=== PATIENT | female | born 1935 | race Caucasian/White ===

== ENCOUNTER 2018-08-04 08:32 | Observation (INO) | payer OTHER ==
--- OUTSIDE RECORDS SUMMARY | 2018-08-04 08:34 | XMS REPORT | Clinical Summary ---
:1935 Author Organization [facility] Address [address] [place] [address] Care Team Providers Name Role Phone Tae Higgins MD Primary Care Provider Allergies Active Allergy Reactions Severity Noted Date Comments Kmhmhpp-Rrv-Lmk Reductase Inhibitors 06/02/2018 Current Medications Prescription Sig. Disp. Refills Start Date End Date Status levothyroxine (SYNTHROID, Take 75 mcg by Active LEVOXYL) 75 mcg tablet mouth every morning. propranolol (INDERAL) 40 Take 40 mg by Active MG tablet mouth 3 (three) times a day. folic acid (FOLVITE) 1 MG Take 1 mg by mouth Active tablet daily. clonIDINE (CATAPRES) 0.1 Take 0.1 mg by Active MG tablet mouth as needed for high blood pressure. TRIAMTERENE ORAL Take 37.5 mg by Active mouth as needed. 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 01/16/2018 Hospital Encounter Procedural Debby Higgins sinus Cardiology Tae Craven MD hypersensitivity 10/23/2017 Ancillary Orders Procedural Syd Lopez Carotid sinus Cardiology E., MD hypersensitivity 10/17/2017 Hospital Encounter Procedural Syd Lopez Carotid sinus Cardiology MD Trey hypersensitivity after 08/03/2017 Family History Medical History Relation Name Comments Bladder Cancer Brother Stroke Brother Stroke Father Breast cancer Mother Stroke Mother Stroke Sister Stroke Sister Stroke Sister Thyroid cancer Son Prostate cancer Son Relation Name Status Comments Brother Brother Father Mother Sister Sister Sister Alive Son Alive Son Alive Social History Tobacco Use Types Packs/Day Years Used Date Never Smoker Alcohol Use Drinks/Week oz/Week Comments Yes occasionally Sex Assigned at Date Recorded Not on file Last Filed Vital Signs Vital Sign Reading Time Taken Blood Pressure - - Pulse - - Temperature - - Respiratory Rate - - Oxygen Saturation - - Inhaled Oxygen Concentration - - Weight 81.6 kg (180 lb) 06/02/2018 9:37 AM CDT Height 160 cm (5' 3") 06/02/2018 9:37 AM CDT Body Mass Index 31.89 06/02/2018 9:37 AM CDT Plan of Treatment Health Maintenance Due Date Last Done Comments SHINGRIX VACCINE (#1) 01/17/1986 ZOSTER VACCINE 1996 PNEUMOCOCCAL POLYSACCHARIDE VACCINE AGE 65 AND OVER 01/17/2001 PNEUMOCOCCAL-13 01/17/2001 INFLUENZA VACCINE 06/18/2018 Procedures Procedure Name Priority Date/Time Associated Diagnosis Comments CORTISOL LEVEL, URINE, Routine 07/01/2018 Pituitary adenoma Results for FREE 10:44 AM CDT this procedure are in the results section. INSULIN-LIKE GROWTH Routine 06/28/2018 Pituitary adenoma Results for FACTOR I LEVEL (IGF-1) 9:42 AM CDT this procedure are in the results section. CORTISOL LEVEL, RANDOM Routine 06/28/2018 Pituitary adenoma Results for 9:42 AM CDT this procedure are in the results section. T4, FREE Routine 06/28/2018 Pituitary adenoma Results for 9:42 AM CDT this procedure are in the results section. T4 Routine 06/28/2018 Pituitary adenoma Results for 9:42 AM CDT this procedure are in the results section. HCG QUALITATIVE, SERUM Routine 06/28/2018 Pituitary adenoma Results for SCREEN 9:42 AM CDT this procedure are in the results section. T3 UPTAKE Routine 06/28/2018 Pituitary adenoma Results for 9:42 AM CDT this procedure are in the results section. T3, FREE Routine 06/28/2018 Pituitary adenoma Results for 9:42 AM CDT this procedure are in the results section. T3 Routine 06/28/2018 Pituitary adenoma Results for 9:42 AM CDT this procedure are in the results section. ADRENOCORTICOTROPIC Routine 06/28/2018 Pituitary adenoma Results for HORMONE 9:42 AM CDT this procedure are in the results section. GROWTH HORMONE Routine 06/28/2018 Pituitary adenoma Results for 9:42 AM CDT this procedure are in the results section. THYROID STIMULATING Routine 06/28/2018 Pituitary adenoma Results for HORMONE 9:42 AM CDT this procedure are in the results section. PROLACTIN LEVEL Routine 06/28/2018 Pituitary adenoma Results for 9:42 AM CDT this procedure are in the results section. FOLLICLE STIMULATING Routine 06/28/2018 Pituitary adenoma Results for HORMONE 9:42 AM CDT this procedure are in the results section. LUTEINIZING HORMONE Routine 06/28/2018 Pituitary adenoma Results for 9:42 AM CDT this procedure are in the results section. CV PACEMAKER DEFIB REMOTE Routine 04/17/2018 Carotid sinus TECH SERVICE 10:43 AM CDT hypersensitivity CV PACEMAKER DEFIB REMOTE Routine 01/17/2018 Carotid sinus TECH SERVICE 4:38 PM EDGE KITTER hypersensitivity CV PACEMAKER DEFIB REMOTE Routine 10/23/2017 Carotid sinus TECH SERVICE 11:55 AM EDGE KITTER hypersensitivity after 08/03/2017 Results Cortisol level, urine, free (07/01/2018 10:44 AM) Total volume 3,000 mL [employer] [facility] [place] [place] Cortisol, urine free 15.2 4.0 - 50.0 mcg/24 [facility] Comment: h [employer] [facility] [place] [place] Analysis performed by [employer]andem Mass Spectrometry This test was developed and its analytical performance characteristics have been determined by [facility]. It has not been cleared or approved by FDA. This assay has been validated pursuant to the CLIA regulations and is used for clinical purposes. Creatinine, urine, 1.04 0.63 - 2.50 g/24 [facility] random h [employer] Specimen Urine Narrative Performed At SPLIT 06/28/2018 FROM [id number] [facility] URINE VOLUME: 3000/24 Other Results Text Performing Organization Information: Site ID: [id number] Name: [facility] ([facility] [facility] [place] [place], Address: [address] [place] [phone] Director: Gladis Mckenna MD,PhD,ANDREEA Performing Organization Address [facility] Phone Number [facility] [employer] [place] [address] [phone] [facility] [place] [place] Insulin-like growth factor I level (IGF-1) (06/28/2018 9:42 AM) IGF-1 179 34 - 246 ng/mL [employer] Z score (female) 1.2 -2.0 - 2.0 SD [facility] Comment: [employer] [facility] [place] [place] This test was developed and its analytical performance characteristics have been determined by [facility]. It has not been cleared or approved by FDA. This assay has been validated pursuant to the CLIA regulations and is used for clinical purposes. Specimen Blood Narrative Performed At FASTING:YES [facility] COLLECTION KIT GIVEN TO PATIENT. PATIENT ADVISED TO RETURN. FASTING: YES Other Results Text Performing Organization Information: Site ID: [id number] Name: [facility], Address: [address] [place] [phone] Director: Gladis Mckenna MD,PhD,ANDREEA Performing Organization Address [facility] Phone Number [facility] [employer] [place] [address] [facility] [place] [place] Prolactin level (06/28/2018 9:42 AM) Prolactin 19.1 ng/mL [employer] [place] Comment: Reference Range Females Non-3.0-30.0 10.0-209.0 Postmenopausal2.0-20.0 Specimen Blood Narrative Performed At FASTING:YES [facility] COLLECTION KIT GIVEN TO PATIENT. PATIENT ADVISED TO RETURN. FASTING: YES Other Results Text Performing Organization Information: Site ID: [id number] Name: [facility] Address: [address] [place] [phone] Director: Roxana Brooks Performing Organization Address [facility] Phone Number [employer] [address] [address] Growth hormone (06/28/2018 9:42 AM) Growth hormone 0.4 < OR=7.1 ng/mL [employer] Comment: II Because of a pulsatile secretion pattern, random (unstimulated) growth hormone (GH) levels are frequently undetectable in normal children and adults and are not reliable for diagnosing GH deficiency. Regarding suppression tests, failure to suppress GH is diagnostic of acromegaly. Typical GH response in healthy subjects: Using the glucose tolerance (GH suppression) test, acromegaly is ruled out if the patient's GH level is <1.0 ng/mL at any point in the timed sequence. [Phi L, Tg Mijares ER, Bryan S, et al. Acromegaly: an Endocrine Society Clinical Practice Guideline. J Clin Endocrinol Metab 2014; 99: 3933- 3951]. Using GH stimulation testing, the following result at any point in the timed sequence makes GH deficiency unlikely: Adults (> or=20 years): Insulin Hypoglycemia> or=5.1 ng/mL Arginine/GHRH > or=4.1 ng/mL Glucagon> or=3.0 ng/mL Children (< 20 years): All Stimulation Tests > or=10.0 ng/mL Specimen Blood Narrative Performed At FASTING:YES [facility] COLLECTION KIT GIVEN TO PATIENT. PATIENT ADVISED TO RETURN. FASTING: YES Other Results Text Performing Organization Information: Site ID: Name: [facility] Address: [address] [place] [phone] Director: Dr. Anthony Whitfield Performing Organization Address [facility] Phone Number [employer] [place] [address] Adrenocorticotropic hormone (06/28/2018 9:42 AM) Adrenocorticotropic hormone 47 6 - 50 pg/mL [facility] Comment: [employer] [facility] [place] [place] Reference range applies only to the specimens collected between 7am-10am. Specimen Blood Narrative Performed At FASTING:YES [facility] COLLECTION KIT GIVEN TO PATIENT. PATIENT ADVISED TO RETURN. FASTING: YES Other Results Text Performing Organization Information: Site ID: [id number] Name: [facility] [facility] [place] [place], Address: [address] [place] [phone] Director: Gladis Mckenna MD,PhD,ANDREEA Performing Organization Address City/State/Zipcode Phone Number [employer] [address] [place] [address] [facility] [place] [place] hCG qualitative, serum screen (06/28/2018 9:42 AM) hCG qualitative, serum NEGATIVE See Note: [employer] [place] Comment: Reference Range: Reference Range Non-: Negative : Positive Specimen Blood Narrative Performed At FASTING:YES [facility] COLLECTION KIT GIVEN TO PATIENT. PATIENT ADVISED TO RETURN. FASTING: YES Other Results Text Performing Organization Information: Site ID: [id number] Name: [facility] Address: [address] [place] [address] Director: Roxana Brooks Performing Organization Address City/State/[place]code [place] [address] T3, free (06/28/2018 9:42 AM) T3, free 2.1 (L) 2.3 - 4.2 pg/mL [employer] [place] Specimen Blood Narrative Performed At FASTING:YES [facility] COLLECTION KIT GIVEN TO PATIENT. PATIENT ADVISED TO RETURN. FASTING: YES Other Results Text Performing Organization Information: Site ID: [facility] Name: [facility] Address: [address] [place] [phone] Director: Roxana Brooks Performing Organization Address City/[facility]/[place]code [place] [address] T3 (06/28/2018 9:42 AM) T3 77 76 - 181 ng/dL [employer] [place] Specimen Blood Narrative Performed At FASTING:YES [facility] COLLECTION KIT GIVEN TO PATIENT. PATIENT ADVISED TO RETURN. FASTING: YES Other Results Text Performing Organization Information: Site ID: [facility] Name: [facility] Address: [address] [place] [phone] Director: Roxana Brooks Performing Organization Address City/State/[place]code [place] [address] T3 uptake (06/28/2018 9:42 AM) T3 uptake 30 25 - 35 % [facility] [place] [place] Specimen Blood Narrative Performed At FASTING:YES [facility] COLLECTION KIT GIVEN TO PATIENT. PATIENT ADVISED TO RETURN. FASTING: YES Other Results Text Performing Organization Information: Site ID: [id number] Name: [facility], Address: [address] [place] [phone] Director: Gladis Mckenna MD,PhD,ANDREEA Performing Organization Address City/[facility] Phone Number [facility]ERWIN [facility]ORE/[facility] [address] [place] [address] [facility] [place] [place] Thyroid stimulating hormone (06/28/2018 9:42 AM) TSH 4.52 (H) 0.40 - 4.50 mIU/L [employer] [place] Specimen Blood Narrative Performed At FASTING:YES [facility] COLLECTION KIT GIVEN TO PATIENT. PATIENT ADVISED TO RETURN. FASTING: YES Other Results Text Performing Organization Information: Site ID: [id number] Name: [facility] Address: [address] [place] [phone] Director: Roxana Brooks Performing Organization Address [facility]/[place] [address] T4, free (06/28/2018 9:42 AM) T4, free 1.0 0.8 - 1.8 ng/dL [employer] [place] Specimen Blood Narrative Performed At FASTING:YES [facility] COLLECTION KIT GIVEN TO PATIENT. PATIENT ADVISED TO RETURN. FASTING: YES Other Results Text Performing Organization Information: Site ID: [id number] Name: [facility] Address: [address] [place] [phone] Director: Roxana Brooks Performing Organization Address [facility]/[place] [address] T4 (06/28/2018 9:42 AM) T4 7.0 5.1 - 11.9 mcg/dL [employer] [place] Specimen Blood Narrative Performed At FASTING:YES [facility] COLLECTION KIT GIVEN TO PATIENT. PATIENT ADVISED TO RETURN. FASTING: YES Other Results Text Performing Organization Information: Site ID: [id number] Name: [facility] Address: [address] [place] [phone] Director: Roxana Brooks Performing Organization Address [facility] [address] Luteinizing hormone (06/28/2018 9:42 AM) Luteinizing hormone 12.7 mIU/mL [facility] [place] Comment: Reference Range Follicular Phase1.9-12.5 Mid-Cycle Peak8.7-76.3 Luteal Phase0.5-16.9 Lglxigaxambhji73.0-54.7 Specimen Blood Narrative Performed At FASTING:YES [facility] COLLECTION KIT GIVEN TO PATIENT. PATIENT ADVISED TO RETURN. FASTING: YES Other Results Text Performing Organization Information: Site ID: [facility] Name: [facility] Address: [address] [place] [phone] Director: Roxana Brooks Performing Organization Address [facility] Phone Number [employer] [address] [address] Follicle stimulating hormone (06/28/2018 9:42 AM) Follicle stimulating 36.4 mIU/mL [employer] [place] hormone Comment: Reference Range Follicular Phase 2.5-10.2 Mid-cycle Peak 3.1-17.7 Luteal Phase 1.5- 9.1 Postmenopausal 23.0-116.3 Specimen Blood Narrative Performed At FASTING:YES [facility] COLLECTION KIT GIVEN TO PATIENT. PATIENT ADVISED TO RETURN. FASTING: YES Other Results Text Performing Organization Information: Site ID: [facility] Name: [facility] Address: [address] [place] [phone] Director: Roxana Brooks Performing Organization Address [facility] Phone Number [place] [address] Cortisol level, random (06/28/2018 9:42 AM) Cortisol, random 24.9 (H) mcg/dL [employer] [place] Comment: Reference Range: For 8 a.m.(7-9 a.m.) Specimen: 4.0-22.0 Reference Range: For 4 p.m.(3-5 p.m.) Specimen: 3.0-17.0 * Please interpret above results accordingly * Specimen Blood Narrative Performed At FASTING:YES [facility] COLLECTION KIT GIVEN TO PATIENT. PATIENT ADVISED TO RETURN. FASTING: YES Other Results Text Performing Organization Information: Site ID: [id number] Name: [facility] Address: [address] [place] [address] Director: Roxana Brooks Performing Organization Address [facility]/Zipcode Phone Number [employer] [place] [address] [place] [address] Cv pacemaker defib or ilr interrogation (04/17/2018 10:43 AM) Narrative Performed At Performing Organization Address [facility]/Zipcode Phone Number [facility] [address] [place] [address] Cv pacemaker defib or ilr interrogation (01/17/2018 4:38 PM) Narrative Performed At Performing Organization Address [facility] Phone Number [facility] [address] [place] [address] Cv pacemaker defib or ilr interrogation (10/23/2017 11:55 AM) Narrative Performed At Performing Organization Address [facility] Phone Number [facility] [address] [place] [address] after 08/03/2017 Insurance Payer Benefit Plan / Group Subscriber ID Type Phone Address AETNA MEDICARE AETNA MEDICARE HMO/PPO [facility] xxxxxxxx HMO Home: [place] [address] [phone] [address]
--- OUTSIDE RECORDS SUMMARY | 2018-08-04 08:34 | XMS REPORT | Clinical Summary ---
:1935 Author Organization [facility] Address [address] [place] [address] Phone Care Team Providers Name Role Phone Unavailable Primary Care Provider Unavailable Allergies Active Allergy Reactions Severity Noted Date Comments Vinay Inhibitors 04/09/2016 BLURRED VISION Amlodipine Besylate 04/09/2016 Nightmares Cephalosporins 04/09/2016 [place] faint Yaojcjc-Scd-Duy Reductase Inhibitors 04/09/2016 Muscle jerks Current Medications Prescription Sig. Disp. Refills Start Date End Date Status levothyroxine (SYNTHROID, Take 100 mcg by Active LEVOTHROID) 100 MCG tablet mouth Every morning on an empty stomach. venlafaxine (EFFEXOR-XR) Take 150 mg by Active 150 MG 24 hr capsule mouth daily. propranolol (INDERAL) 40 Take 40 mg by Active MG tablet mouth 2 (two) times daily. spironolactone (ALDACTONE) Take 25 mg by Active 25 MG tablet mouth daily. Active Problems Problem Noted Date Brain mass 04/10/2016 Social History Tobacco Use Types Packs/Day Years Used Date Never Assessed Sex Assigned at Date Recorded Not on file Last Filed Vital Signs Not on file Plan of Treatment Not on file Results Not on fileafter 08/03/2017
--- OUTSIDE RECORDS SUMMARY | 2018-08-04 08:35 | XMS REPORT ---
:1935 [facility] Address [address] [place] [address] Dr. Smiley [address] [place] [address] Care Team Providers Name Role Phone COLLIN ROMERO Unavailable Unavailable Problems This patient has no known problems. Allergies, Adverse Reactions, Alerts This patient has no known allergies or adverse reactions. Medications This patient has no known medications. Results Test Description Test Time Test Comments Text Results Atomic Results Result Comments POCT-CREATININE 2017-01-31 11:33:00 Test Item Value Reference Range Comments POC-CREATININE (BEAKER) (test 1.0 mg/dL 0.6-1.3 TESTED AT [facility] 67[address] [id number]) [facility] [address] POC-EGFR (BEAKER) (test [id number]) 53 mL/min/1.73M2
[2018-08-04 09:07] LABS: Absolute Lymphocytes (CBC) 1.8 K/uL (0.7-4.9); Absolute Monocytes 0.8 K/uL (0.1-1.3); Absolute Neutrophil 4.5 K/uL (1.8-8.0); Basophils % 0.6 % (0-1.3); Eosinophils % 5.1 % (0-4.4); Lymphocytes % 24.3 % (15.3-44.8); MCH 33.1 pg (27.0-35.0); MCV 95.3 fL (80-100); MPV 8.4 fL (7.6-11.3); Monocytes % 10.1 % (3.3-12.3); Protime INR 0.94
[2018-08-04] MEDS ORDERED: NA CHLORIDE 0.9% 1,000 ML ONE (09:12)
[2018-08-04] MEDS ORDERED: CLOPIDOGREL 75 MG TABLET ONE (09:12)
[2018-08-04] MEDS ORDERED: FOLIC ACID 5 MG/ML VIAL ONE (09:13)
--- NOTE | 2018-08-04 09:14 | RAD REPORT ---
EXAM DESCRIPTION: CT - Ct Stroke Brain Wo Cont - 08/04/2018 8:57 am CLINICAL HISTORY: Code stroke, left-sided paresthesia CLINICAL HISTORY: CT head October 2017 TECHNIQUE: Axial 5 millimeter thick images of the head were obtained without IV contrast. All CT scans are performed using dose optimization technique as appropriate and may include automated exposure control or mA/KV adjustment according to patient size. FINDINGS: No intracranial hemorrhage, mass, or cerebral edema. No acute cortical based infarction. N o cortical edema or sulcal effacement. Patient has mild underlying atrophy and chronic ischemic hurley e. Ventricles are in proportion to any volume loss. Arterial and physiologic calcifications are prese nt. Dey matter-white matter differentiation is preserved. No globe or orbital content abnormality. Visualized portions of the mastoid air cells, paranasal sinuses, and orbits are unremarkable. Images were only initially available in the exception folder. No report could be generated in that st atus. Images were reviewed and findings telephoned to doctor Jones 8:52 a.m.. IMPRESSION: No CT evidence of acute intracranial process. Patient has mild atrophy and chronic ischemic change.
[2018-08-04 09:34] LABS: ALT/SGPT 29 U/L (12-78); AST/SGOT 21 U/L (15-37); Albumin 3.7 g/dL (3.4-5.0); Alkaline Phosphatase 79 U/L (45-117); BUN Blood Urea Nitrogen 17 mg/dL (7-18); Bicarbonate 30 mmol/L (21-32); Bilirubin Direct < 0.1 mg/dL (0-0.2); Bilirubin Total 0.4 mg/dL (0.2-1.0); CKMB Creatine Kinase MB 1.6 ng/mL (0.3-3.6); Creatine Phosphokinase 90 U/L (26-192); Glucose Level 114 mg/dL (74-106); Magnesium 2.4 mg/dL (1.8-2.4); NT PRO-BNP 118 pg/mL (<450); Potassium 4.1 mmol/L (3.5-5.1); Protein, Total 7.5 g/dL (6.4-8.2); Sodium Level 139 mmol/L (136-145)
[2018-08-04 09:42] LABS: Troponin (Emerg Dept Use Only) < 0.02 ng/mL (0.0-0.045)
--- NOTE | 2018-08-04 09:42 | RAD REPORT ---
EXAM DESCRIPTION: RAD - Chest Single View - 08/04/2018 9:06 am CLINICAL HISTORY: Code stroke chest film COMPARISON: October 2017 TECHNIQUE: AP portable chest image was obtained 0855 hours . FINDINGS: No failure, infiltrate or mass seen. Lung parenchyma is similar to the comparison. Left-si ded pacemaker is in place. Trachea is midline. Heart and vasculature are normal. No measurable pleura l effusion and no pneumothorax. No gross bony abnormality seen. No acute aortic findings suspected. IMPRESSION: No acute cardiopulmonary process. No significant interval change.
--- NOTE | 2018-08-04 09:43 | ER ---
Nurse's Notes [facility] Name: Mariama Rodríguez Age: 83 yrs Sex: Female : 1935 Arrival Date: 08/04/2018 Time: 08:33 Bed 4 Private MD: León Paulson V Diagnosis: Transient cerebral ischemic attack, unspecified;Cystitis;Abnormal brain scan-pitutary macroadenoma Presentation: 08/04 08:35 Presenting complaint: Patient states: woke up this morning with tingling to left side iw of her body, tingling seems to be resolving and now localized to hand, pt went to bed at midnight and felt normal, pt reports hx of TIA 2-3 years ago with similar symptoms. Transition of care: patient was not received from another setting of care. No acute neurological deficit is noted. Pre-hospital glucose is not applicable to this patient. Onset of symptoms was August 04, 2018 at 00:00. Risk Assessment: Do you want to hurt yourself or someone else? Patient reports no desire to harm self or others. Initial Sepsis Screen: Does the patient meet any 2 criteria? No. Patient's initial sepsis screen is negative. Does the patient have a suspected source of infection? No. Patient's initial sepsis screen is negative. Care prior to arrival: Medication(s) given: ASA, 81 mg, x 4. 08:35 Method Of Arrival: Wheelchair iw 08:35 Acuity: CED 2 iw Stroke Activation: Symptom onset > 6 hours Physician: Stroke Attending; Name: ; Notified At: ; Arrived At: Physician: Chief Stroke Resident; Name: ; Notified At: ; Arrived At: Physician: Stroke Resident; Name: ; Notified At: ; Arrived At: Physician: ED Attending; Name: Dr. Jones; Notified At: 08:39; Arrived At: 08:39 Physician: ED Resident; Name: ; Notified At: ; Arrived At: Historical: - Allergies: 08:50 amlodipine; iw 08:50 angiotensin converting enzyme inhibitors; iw 08:50 angiotensin II inhibitors; iw 08:50 CEPHALOSPORINS; iw 08:50 Ogopuvv-Woq-Axp Reductase Inhibitors; iw - Home Meds: 09:05 levothyroxine 75 mcg tab 1 tab once daily [Active]; venlafaxine 75 mg oral tab 1 tab 2 iw times per day [Active]; propranolol 40 mg Oral tab 1 tab 2 times per day [Active]; folic acid 1 mg Oral tab 1 tab once daily [Active]; - PMHx: 08:50 chronic constipation; Hyperlipidemia; Hypertension; Hypothyroidism; TIA; iw 09:17 Pacemaker; iw - PSHx: 09:05 Cholecystectomy; Hysterectomy; iw - Immunization history:: Adult Immunizations up to date. - Social history:: Smoking status: Patient/guardian denies using tobacco. - Ebola Screening: : Patient negative for fever greater than or equal to 101.5 degrees Fahrenheit, and additional compatible Ebola Virus Disease symptoms Patient denies exposure to infectious person Patient denies travel to an Ebola-affected area in the 21 days before illness onset No symptoms or risks identified at this time. - Family history:: not pertinent. Screenin:53 Abuse screen: Denies threats or abuse. Denies injuries from another. Nutritional iw screening: No deficits noted. Tuberculosis screening: No symptoms or risk factors identified. Fall Risk IV access (20 points). 09:01 Patient reports she self administered 4-5 "baby Aspirin" this morning with ease. ss Patient was NPO on arrival to ED until now. The patient is alert, able to follow commands. The patient does not exhibit slurred or garbled speech The patient is not exhibiting difficulty speaking. The patient does not exhibit difficulty understanding words. The patient is able to swallow own secretions with no drooling or need for suction. Patient tolerated one teaspoon of water. No drooling, immediate coughing, gurgling, or clearing of the throat was noted. The patient tolerated 90mL of water. No drooling, immediate coughing, gurgling, or clearing of the throat was noted. The patient passed the bedside swallow screening. Oral medications may be given as ordered. Contact Physician for further diet orders. Assessment: 08:43 Reassessment: pt transported to CT via stretcher, with SKY Colbert. iw 08:47 Reassessment: back from CT. Patient reports that symptoms have completely subsided. ss Denies dizziness, weakness, slurred speech. General: Appears in no apparent distress. comfortable, Behavior is calm, cooperative, Denies fever, feeling ill, fatigue, chills, Patient reports that approx 45 minutes- 1 hour ago patient woke up with tingling to her L side. Upon arrival to ER, patient reports that her symptoms have mostly gone away, other than a mild tingling in her L hand. . Pain: Denies pain. Neuro: Level of Consciousness is awake, alert, obeys commands, Oriented to person, place, time, situation, Date Night Caregiver are equal bilaterally Moves all extremities. Full function Speech is normal, Facial symmetry appears normal, Pupils are PERRLA, Intact Denies weakness blurred vision dizziness, difficulty swallowing, paresthesias numbness headache photophobia. Cardiovascular: Capillary refill < 3 seconds is brisk in bilateral fingers. Respiratory: Airway is patent Trachea midline Respiratory effort is even, unlabored, Respiratory pattern is regular, symmetrical. GI: Patient currently denies abdominal pain, bloody stool, diarrhea, nausea, vomiting. : No signs and/or symptoms were reported regarding the genitourinary system. Denies burning with urination, urinary frequency. EENT: Oral mucosa is moist. Throat is clear. Derm: Skin is intact, is healthy with good turgor, Skin is dry, Skin is pink, warm \\T\\ dry. normal. Musculoskeletal: Circulation, motion, and sensation intact. Capillary refill < 3 seconds, is brisk, in bilateral fingers. Range of motion: intact in all extremities, Swelling absent. 08:53 Reassessment: CT negative, per Dr. Peres. iw 08:53 T-PA (Activase) Screening: Contraindications: Patient reports onset of signs and iw symptoms of stroke greater than 6 hours ago: Yes. 09:00 Patient self medicated with ASA prior to arrival with 4-5 "baby aspirin". Pt reports ss swallowing with ease. NPO prior on arrival to ER and prior to stroke screening. The patient is alert, and able to follow commands. The patient does not exhibit slurred or garbled speech. The patient is not exhibiting difficulty speaking. The patient does not exhibit difficulty understanding words. The patient is able to swallow own secretions with no drooling or need for suction. Patient tolerated one teaspoon of water. No drooling, immediate coughing, gurgling, or clearing of the throat was noted. The patient tolerated 90mL of water. No drooling, immediate coughing, gurgling, or clearing of the throat was noted. The patient passed the bedside swallow screening. Oral medications may be given as ordered. Contact Physician for further diet orders. Provider notified of bedside swallow screening results: Kali Jones MD. 09:13 Reassessment: Patient appears in no apparent distress at this time. Patient and/or ss family updated on plan of care and expected duration. Pain level reassessed. Patient is alert, oriented x 3, equal unlabored respirations, skin warm/dry/pink. 10:38 Reassessment: Report called to SKY Choi. ECHO is being obtained at bedside at this ss time, will wait to take patient upstairs. CAROLINE Fitzpatrick reports that she will be done with imaging in 15-20 minutes. Vital Signs: 08:41 BP 176 / 63; Pulse 75; Resp 16; Pulse Ox 98% on R/A; Weight 80.74 kg; Height 5 ft. 3 iw in. (160.02 cm); Pain 0/10; 09:19 BP 157 / 69; Pulse 63; Resp 16; Temp 98.4(O); Pulse Ox 99% on R/A; Pain 0/10; ss 09:58 BP 155 / 64; Pulse 64; Resp 19; Pulse Ox 99% ; sv 10:38 BP 162 / 73; Pulse 60; Resp 16; Pulse Ox 99% on R/A; Pain 0/10; ss 08:41 Body Mass Index 31.53 (80.74 kg, 160.02 cm) iw NIH Stroke Scale Scores: 08:47 NIHSS Score: 0 ss 08:56 NIHSS Score: 0 [facility] ED Course: 08:33 Patient arrived in ED. sb2 08:33 León Paulson MD is Private Physician. sb2 08:37 Ellen Martin, SKY is Primary Nurse. iw 08:40 Inserted saline lock: 20 gauge in right antecubital area, using aseptic technique. iw Blood collected. IV inserted by SKY Colbert. 08:45 CT completed. Patient tolerated procedure well. Patient moved to CT via stretcher. Patient moved back from CT. 08:46 Kali Jones MD is Attending Physician. pedro 08:49 Triage completed. iw 08:50 Initial lab(s) drawn, by ED staff, sent to lab. iw 08:51 Arm band placed on. iw 08:55 Sayra Cerrato, RN is Primary Nurse. ss 08:58 CT Stroke Brain w/o Contrast In Process Unspecified. EDMS 09:01 Patient has correct armband on for positive identification. Placed in gown. Bed in low ss position. Call light in reach. Side rails up X2. Adult w/ patient. night monitor on. Pulse ox on. NIBP on. Warm blanket given. 09:01 Patient maintains SpO2 saturation greater than 95% on room air. Thermoregulation: warm ss blanket given to patient. 09:06 X-ray completed. Portable x-ray completed in exam room. Patient tolerated procedure jb2 well. 09:07 XRAY Chest (1 view) In Process Unspecified. EDMS 09:20 Carotid Artery Bilateral US In Process Unspecified. EDMS 09:25 Ultrasound completed. aa4 09:42 León Paulson MD is Hospitalizing Provider. pedro 10:07 CT completed. Patient tolerated procedure well. Patient moved to CT via wheelchair. Patient moved back from CT. 10:38 No provider procedures requiring assistance completed. Patient admitted, IV remains in ss place. Administered Medications: 09:12 Drug: foLIC Acid 1 mg Route: IVPB; Site: right antecubital; 10:43 Follow up: IV Status: Completed infusion 09:13 Drug: NS 0.9% 1000 ml Route: IV; Rate: 1 bolus; Site: right antecubital; 10:43 Follow up: IV Status: Infusion continued upon admission 09:13 Drug: PlaVIX 75 mg Route: PO; 10:42 Follow up: Response: No adverse reaction 10:47 Drug: levofloxacin 500 mg Volume: 100 ml; Route: IVPB; Infused Over: 60 mins; Site: right antecubital; 10:47 Follow up: IV Status: Infusion continued upon admission Point of Care Testing: Blood Glucose: 08:41 Blood Glucose: 111 mg/dL; iw Ranges: Outcome: 09:43 Decision to Hospitalize by Provider. pedro 10:38 Condition: good 10:38 Instructed on the need for admit. 11:11 Admitted to [facility] accompanied by tech, via wheelchair, room 414, with chart, Report ss called to SKY Choi 11:12 Patient left the ED. NIH Stroke Scale - NIH Stroke Score Date: 08/04/2018 Time: 08:47 Total Score = 0 1a. Level of Consciousness (LOC) - 0(Alert) 1b. Level of Consciousness (LOC) (Year \\T\\ Age) - 0(Both) 1c. LOC Commands (Open \\T\\ Closes Eyes/Revenue Settlements Administrator) - 0(Both) 2. Best Gaze (Lateral Gaze Paresis) - 0(Normal) 3. Visual Field Loss - 0(No visual loss) 4. Facial Palsy - 0(Normal) 5a. Left Arm: Motor (10-second hold) - 0(No drift) 5b. Right Arm: Motor (10-second hold) - 0(No drift) 6a. Left Leg: Motor (5-second hold - always test supine) - 0(No drift) 6b. Right Leg: Motor (5-second hold - always test supine) - 0(No drift) 7. Limb Ataxia (finger/nose \\T\\ heel/santos - test with eyes open) - 0(Absent) 8. Sensory Loss (pinprick arms/legs/face) - 0(Normal) 9. Best Language: Aphasia (description/naming/reading) - 0(No aphasia) 10. Dysarthria (speech clarity - read or repeat words) - 0(Normal) 11. Extinction and Inattention (visual/tactile/auditory/spatial/personal) - 0(No abnormality) Initials: NIH Stroke Scale - NIH Stroke Score Date: 08/04/2018 Time: 08:56 Total Score = 0 1a. Level of Consciousness (LOC) - 0(Alert) 1b. Level of Consciousness (LOC) (Year \\T\\ Age) - 0(Both) 1c. LOC Commands (Open \\T\\ Closes Eyes/Revenue Settlements Administrator) - 0(Both) 2. Best Gaze (Lateral Gaze Paresis) - 0(Normal) 3. Visual Field Loss - 0(No visual loss) 4. Facial Palsy - 0(Normal) 5a. Left Arm: Motor (10-second hold) - 0(No drift) 5b. Right Arm: Motor (10-second hold) - 0(No drift) 6a. Left Leg: Motor (5-second hold - always test supine) - 0(No drift) 6b. Right Leg: Motor (5-second hold - always test supine) - 0(No drift) 7. Limb Ataxia (finger/nose \\T\\ heel/santos - test with eyes open) - 0(Absent) 8. Sensory Loss (pinprick arms/legs/face) - 0(Normal) 9. Best Language: Aphasia (description/naming/reading) - 0(No aphasia) 10. Dysarthria (speech clarity - read or repeat words) - 0(Normal) 11. Extinction and Inattention (visual/tactile/auditory/spatial/personal) - 0(No abnormality) Initials: pedro Signatures: Dispatcher [employer] Luna Ambrocio RN RN sv Anderson, Corey, MD MD cha Buechter, Jesse jb2 Jones, Susan sj Williams, Irene, RN RN iw Frazier, Amanda aa4 Sayra Cerrato RN RN ss Billeau, Sheri sb2
--- NOTE | 2018-08-04 09:44 | EDPHYS ---
Physician Documentation [facility] Name: Mariama Rodríguez Age: 83 yrs Sex: Female : 1935 Arrival Date: 08/04/2018 Time: 08:33 Bed 4 Private MD: León Paulson V ED Physician Kali Jones HPI: 08/04 08:56 This 83 yrs old Female presents to ER via Wheelchair with complaints of S/S epdro of Possible Stroke. 08:56 The patient's problem is reported as paresthesias, in left upper extremity, in left pedro lower extremity, in left side of face. Onset: The symptoms/episode began/occurred just prior to arrival, this morning. Duration: The episode is continuous. Context: occurred at home. The symptoms are alleviated by nothing. The symptoms are aggravated by nothing. Associated signs and symptoms: The patient has no apparent associated signs or symptoms. Severity of symptoms: At their worst the symptoms were mild in the emergency department the symptoms have resolved and did so just prior to arrival. Patient's baseline: Neuro: alert and fully oriented. The patient has not experienced similar symptoms in the past. Historical: - Allergies: 08:50 amlodipine; iw 08:50 angiotensin converting enzyme inhibitors; iw 08:50 angiotensin II inhibitors; iw 08:50 CEPHALOSPORINS; iw 08:50 Ooqkpsp-Lzw-Smf Reductase Inhibitors; iw - Home Meds: 09:05 levothyroxine 75 mcg tab 1 tab once daily [Active]; venlafaxine 75 mg oral tab 1 tab 2 iw times per day [Active]; propranolol 40 mg Oral tab 1 tab 2 times per day [Active]; folic acid 1 mg Oral tab 1 tab once daily [Active]; - PMHx: 08:50 chronic constipation; Hyperlipidemia; Hypertension; Hypothyroidism; TIA; iw 09:17 Pacemaker; iw - PSHx: 09:05 Cholecystectomy; Hysterectomy; iw - Immunization history:: Adult Immunizations up to date. - Social history:: Smoking status: Patient/guardian denies using tobacco. - Ebola Screening: : Patient negative for fever greater than or equal to 101.5 degrees Fahrenheit, and additional compatible Ebola Virus Disease symptoms Patient denies exposure to infectious person Patient denies travel to an Ebola-affected area in the 21 days before illness onset No symptoms or risks identified at this time. - Family history:: not pertinent. ROS: 08:56 Constitutional: Negative for fever, chills, and weight loss, Eyes: Negative for injury, pedro pain, redness, and discharge, ENT: Negative for injury, pain, and discharge, Neck: Negative for injury, pain, and swelling, Cardiovascular: Negative for chest pain, palpitations, and edema, Respiratory: Negative for shortness of breath, cough, wheezing, and pleuritic chest pain, Abdomen/GI: Negative for abdominal pain, nausea, vomiting, diarrhea, and constipation, Back: Negative for injury and pain, : Negative for injury, bleeding, discharge, and swelling, MS/Extremity: Negative for injury and deformity, Skin: Negative for injury, rash, and discoloration, Psych: Negative for depression, anxiety, suicide ideation, homicidal ideation, and hallucinations, Allergy/Immunology: Negative for hives, rash, and allergies, Endocrine: Negative for neck swelling, polydipsia, polyuria, polyphagia, and marked weight changes, Hematologic/Lymphatic: Negative for swollen nodes, abnormal bleeding, and unusual bruising. 08:56 Neuro: Positive for tingling, of the face, left arm and left leg. Exam: 08:56 Radiologist reports: old, nad pedro 08:56 Constitutional: This is a well developed, well nourished patient who is awake, alert, and in no acute distress. Head/Face: Normocephalic, atraumatic. Eyes: Pupils equal round and reactive to light, extra-ocular motions intact. Lids and lashes normal. Conjunctiva and sclera are non-icteric and not injected. Cornea within normal limits. Periorbital areas with no swelling, redness, or edema. ENT: Nares patent. No nasal discharge, no septal abnormalities noted. Tympanic membranes are normal and external auditory canals are clear. Oropharynx with no redness, swelling, or masses, exudates, or evidence of obstruction, uvula midline. Mucous membranes moist. Neck: Trachea midline, no thyromegaly or masses palpated, and no cervical lymphadenopathy. Supple, full range of motion without nuchal rigidity, or vertebral point tenderness. No Meningismus. Chest/axilla: Normal chest wall appearance and motion. Nontender with no deformity. No lesions are appreciated. Cardiovascular: Regular rate and rhythm with a normal S1 and S2. No gallops, murmurs, or rubs. Normal PMI, no JVD. No pulse deficits. Respiratory: Lungs have equal breath sounds bilaterally, clear to auscultation and percussion. No rales, rhonchi or wheezes noted. No increased work of breathing, no retractions or nasal flaring. Abdomen/GI: Soft, non-tender, with normal bowel sounds. No distension or tympany. No guarding or rebound. No evidence of tenderness throughout. Back: No spinal tenderness. No costovertebral tenderness. Full range of motion. Female : Normal external genitalia. Skin: Warm, dry with normal turgor. Normal color with no rashes, no lesions, and no evidence of cellulitis. MS/ Extremity: Pulses equal, no cyanosis. Neurovascular intact. Full, normal range of motion. Neuro: Awake and alert, GCS 15, oriented to person, place, time, and situation. Cranial nerves II-XII grossly intact. Motor strength 5/5 in all extremities. Sensory grossly intact. Cerebellar exam normal. Normal gait. Psych: Awake, alert, with orientation to person, place and time. Behavior, mood, and affect are within normal limits. 08:58 Neuro: Orientation: is normal, appropriate for stated age, no acute changes, Mentation: pedro is normal, appropriate for stated age, no acute changes, Memory: is normal, appropriate for stated age, no acute changes, Cranial nerves: grossly normal, is grossly normal based on the patient's age, no acute changes, Cerebellar function: is grossly normal, is grossly normal based on the patient's age, no acute changes, Motor: is normal, is grossly normal based on the patient's age, no acute changes, moves all fours, strength is 5/5 in all extremities, the no evidence of posturing, Sensation: is normal, no obvious gross deficits, appropriate no acute changes, Gait: not tested. Deep tendon reflexes are 2+ (normal) in the bilateral brachioradialis, bicep, tricep and patellar and Achilles tendons, Babinski testing is normal, seizure activity, is not displayed by the patient, not a tpa candidate, no deficits, motor or sensory. Vital Signs: 08:41 BP 176 / 63; Pulse 75; Resp 16; Pulse Ox 98% on R/A; Weight 80.74 kg; Height 5 ft. 3 iw in. (160.02 cm); Pain 0/10; 09:19 BP 157 / 69; Pulse 63; Resp 16; Temp 98.4(O); Pulse Ox 99% on R/A; Pain 0/10; ss 09:58 BP 155 / 64; Pulse 64; Resp 19; Pulse Ox 99% ; sv 10:38 BP 162 / 73; Pulse 60; Resp 16; Pulse Ox 99% on R/A; Pain 0/10; ss 08:41 Body Mass Index 31.53 (80.74 kg, 160.02 cm) iw NIH Stroke Scale Scores: 08:47 NIHSS Score: 0 ss 08:56 NIHSS Score: 0 pedro MDM: 08:46 Patient medically screened. [facility] 09:00 Data reviewed: vital signs, nurses notes, lab test result(s), EKG, radiologic studies, [facility] CT scan. 08/04 08:54 Order name: Basic Metabolic Panel; Complete Time: 09:43 [facility] 08/04 08:54 Order name: CBC with Diff; Complete Time: 09:43 [facility] 08/04 08:54 Order name: Ckmb; Complete Time: 09:43 [facility] 08/04 08:54 Order name: CPK; Complete Time: 09:43 [facility] 08/04 08:54 Order name: LFT's; Complete Time: 09:43 [facility] 08/04 08:54 Order name: Magnesium; Complete Time: 09:43 [facility] 08/04 08:54 Order name: NT PRO-BNP; Complete Time: 09:43 [facility] 08/04 08:54 Order name: PT-INR; Complete Time: 09:43 [facility] 08/04 08:54 Order name: Ptt, Activated; Complete Time: 09:43 [facility] 08/04 08:54 Order name: Troponin (emerg Dept Use Only); Complete Time: 09:43 [facility] 08/04 08:54 Order name: Urine Culture [facility] 08/04 08:55 Order name: Sed Rate; Complete Time: 09:43 [facility] 08/04 08:55 Order name: CRP; Complete Time: 09:43 [facility] 08/04 09:53 Order name: Basic Metabolic Panel [facility] 08/04 08:52 Order name: CT Stroke Brain w/o Contrast; Complete Time: 09:43 08/04 08:54 Order name: XRAY Chest (1 view); Complete Time: 09:43 [facility] 08/04 08:54 Order name: Carotid Artery Bilateral US; Complete Time: 10:38 [facility] 08/04 09:12 Order name: Echo w/ Doppler [facility] 08/04 09:53 Order name: Basic Metabolic Panel [facility] 08/04 09:53 Order name: CBC with Automated Diff [facility] 08/04 09:53 Order name: CBC with Automated Diff [facility] 08/04 09:53 Order name: Troponin I [facility] 08/04 09:53 Order name: Troponin I [facility] 08/04 09:53 Order name: Troponin I [facility] 08/04 09:54 Order name: Head angio; Complete Time: 10:40 [facility] 08/04 10:38 Order name: Urine Dipstick--Ancillary (enter results) 08/04 08:54 Order name: EKG; Complete Time: 08:55 [facility] 08/04 08:54 Order name: Cardiac monitoring; Complete Time: 09:03 [facility] 08/04 08:54 Order name: EKG - Nurse/Tech; Complete Time: 09:03 [facility] 08/04 08:54 Order name: IV Saline Lock; Complete Time: 09:03 [facility] 08/04 08:54 Order name: Labs collected and sent; Complete Time: 09:03 [facility] 08/04 08:54 Order name: O2 Per Protocol; Complete Time: 09:03 [facility] 08/04 08:54 Order name: O2 Sat Monitoring; Complete Time: 09:03 [facility] 08/04 08:54 Order name: Urine Dipstick-Ancillary (obtain specimen); Complete Time: 09:51 [facility] 08/04 09:53 Order name: CONS Physician Consult [facility] 08/04 09:53 Order name: CONS Physician Consult [facility] 08/04 09:53 Order name: Regular [facility] 08/04 09:53 Order name: EKG Electrocardiogram [facility] 08/04 09:53 Order name: EKG Electrocardiogram [facility] 08/04 09:53 Order name: EKG Electrocardiogram [facility] 08/04 09:53 Order name: EKG Electrocardiogram [facility] Administered Medications: 09:12 Drug: foLIC Acid 1 mg Route: IVPB; Site: right antecubital; ss 10:43 Follow up: IV Status: Completed infusion ss 09:13 Drug: NS 0.9% 1000 ml Route: IV; Rate: 1 bolus; Site: right antecubital; ss 10:43 Follow up: IV Status: Infusion continued upon admission ss 09:13 Drug: PlaVIX 75 mg Route: PO; ss 10:42 Follow up: Response: No adverse reaction 10:47 Drug: levofloxacin 500 mg Volume: 100 ml; Route: IVPB; Infused Over: 60 mins; Site: right antecubital; 10:47 Follow up: IV Status: Infusion continued upon admission Point of Care Testing: Blood Glucose: 08:41 Blood Glucose: 111 mg/dL; iw Ranges: Critical Glucose Levels:Adult <50 mg/dl or >400 mg/dl <40 mg/dl or >180 mg/dl Disposition: 08/04/18 09:43 Hospitalization ordered by León Paulson for Observation. Preliminary diagnosis are Transient cerebral ischemic attack, unspecified, Cystitis, Abnormal brain scan - pitutary macroadenoma. - Bed requested for Telemetry/MedSurg (observation). - Status is Observation. ss - Condition is Stable. - Problem is new. - Symptoms have improved. UTI on Admission? No NIH Stroke Scale - NIH Stroke Score Date: 08/04/2018 Time: 08:47 Total Score = 0 1a. Level of Consciousness (LOC) - 0(Alert) 1b. Level of Consciousness (LOC) (Year \T\ Age) - 0(Both) 1c. LOC Commands (Open \T\ Closes Eyes/Steep[place] Jack) - 0(Both) 2. Best Gaze (Lateral Gaze Paresis) - 0(Normal) 3. Visual Field Loss - 0(No visual loss) 4. Facial Palsy - 0(Normal) 5a. Left Arm: Motor (10-second hold) - 0(No drift) 5b. Right Arm: Motor (10-second hold) - 0(No drift) 6a. Left Leg: Motor (5-second hold - always test supine) - 0(No drift) 6b. Right Leg: Motor (5-second hold - always test supine) - 0(No drift) 7. Limb Ataxia (finger/nose \T\ heel/santos - test with eyes open) - 0(Absent) 8. Sensory Loss (pinprick arms/legs/face) - 0(Normal) 9. Best Language: Aphasia (description/naming/reading) - 0(No aphasia) 10. Dysarthria (speech clarity - read or repeat words) - 0(Normal) 11. Extinction and Inattention (visual/tactile/auditory/spatial/personal) - 0(No abnormality) Initials: NIH Stroke Scale - NIH Stroke Score Date: 08/04/2018 Time: 08:56 Total Score = 0 1a. Level of Consciousness (LOC) - 0(Alert) 1b. Level of Consciousness (LOC) (Year \T\ Age) - 0(Both) 1c. LOC Commands (Open \T\ Closes Eyes/Steeple Jack) - 0(Both) 2. Best Gaze (Lateral Gaze Paresis) - 0(Normal) 3. Visual Field Loss - 0(No visual loss) 4. Facial Palsy - 0(Normal) 5a. Left Arm: Motor (10-second hold) - 0(No drift) 5b. Right Arm: Motor (10-second hold) - 0(No drift) 6a. Left Leg: Motor (5-second hold - always test supine) - 0(No drift) 6b. Right Leg: Motor (5-second hold - always test supine) - 0(No drift) 7. Limb Ataxia (finger/nose \T\ heel/santos - test with eyes open) - 0(Absent) 8. Sensory Loss (pinprick arms/legs/face) - 0(Normal) 9. Best Language: Aphasia (description/naming/reading) - 0(No aphasia) 10. Dysarthria (speech clarity - read or repeat words) - 0(Normal) 11. Extinction and Inattention (visual/tactile/auditory/spatial/personal) - 0(No abnormality) Initials: pedro Signatures: Dispatcher [employer] Shannon Cherry RN RN dw Anderson, Corey, MD MD cha Williams, Irene, RN RN Sayra Cerrato RN RN Corrections: (The following items were deleted from the chart) 10:26 09:43 Hospitalization Ordered by León Paulson MD for Observation. Preliminary mary diagnosis is Transient cerebral ischemic attack, unspecified. Bed requested for Telemetry/MedSurg (observation). Status is Observation. Condition is Stable. Problem is new. Symptoms have improved. UTI on Admission? No. pedro 10:43 10:26 08/04/2018 09:43 Hospitalization Ordered by León Paulson MD for pedro Observation. Preliminary diagnosis is Transient cerebral ischemic attack, unspecified. Bed requested for Telemetry/MedSurg (observation). Status is Observation. Condition is Stable. Problem is new. Symptoms have improved. UTI on Admission? No. mary 11:12 10:43 08/04/2018 09:43 Hospitalization Ordered by León Paulson MD for ss Observation. Preliminary diagnosis is Transient cerebral ischemic attack, unspecified; Cystitis; Abnormal brain scan - pitutary macroadenoma. Bed requested for Telemetry/MedSurg (observation). Status is Observation. Condition is Stable. Problem is new. Symptoms have improved. UTI on Admission? No. pedro
[2018-08-04] MEDS ORDERED: ONDANSETRON 4 MG/2 ML VIAL IV PRN (09:50)
[2018-08-04] MEDS ORDERED: ACETAMINOPHEN 500 MG TAB PO PRN (09:50)
--- NOTE | 2018-08-04 10:19 | RAD REPORT ---
EXAM DESCRIPTION: US - CP - 08/04/2018 9:34 am CLINICAL HISTORY: Dizziness;Slurred speech TIA/ CVA. COMPARISON: Carotid Artery Bilateral dated 10/28/2017 TECHNIQUE: Real-time sonographic evaluation of both carotid systems was performed. Doppler interroga tion was performed with waveform tracing bilaterally. FINDINGS: Normal high resistance waveforms are noted in both external carotid arteries. The common c arotid arteries and internal carotid arteries show normal low resistance waveforms. Mild hard plaque in both proximal ICAs. Peak systolic and end diastolic velocity values and the ICA/C CA ratios are in the non-hemodynamically significant range. Antegrade flow seen in both vertebral arteries. IMPRESSION: Mild hard plaque in both proximal ICAs. No evidence of a hemodynamically significant stenosis.
--- NOTE | 2018-08-04 10:39 | RAD REPORT ---
EXAM DESCRIPTION: CT - Head angio - 08/04/2018 10:08 am CLINICAL HISTORY: Left-sided numbness, CVA, history of TIA COMPARISON: CT head same date, CT head October 2017 in March 2016 TECHNIQUE: During dynamic enhancement using nonionic IV contrast, axial 1 millimeter thick images we re obtained. Sagittal and coronal reconstruction images were generated and reviewed. Maximum intensit y projection protocol utilized. FINDINGS: Left vertebral artery is dominant. Right vertebral artery terminates at the posterior infe rior cerebellar artery. No aneurysm or vascular malformation. No vasculitis. Atherosclerotic changes are relatively mild. No major branch stenosis or occlusion identifiable. Major venous sinuses are patent. Enlarged sella turcica is present 2 cm in diameter. Soft tissue attenuation is present. 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 Findings are not substantially different from 2016. Patient's pacemaker preclud es a more sensitive MRI assessment. IMPRESSION: No aneurysm or vascular malformation. No significant degree of atherosclerotic change identifiable. No major branch stenosis or occlusion i dentifiable. 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 Finding is stable back to 2016 and possibly as far as 2011. Acute finding is not suspected. Pacemaker precludes MRI evaluation.
[2018-08-04] MEDS ORDERED: Levofloxacin500mg IV 500 MG/100 ML BAG IV ONE (10:52)
[2018-08-04 11:28] VITALS: BMI 32.3
[2018-08-04] MEDS: NA CHLORIDE 0.9% 1,000 ML IV SCH ×2 (11:44→20:15)
[2018-08-04 11:56] LABS: Urine Blood NEGATIVE (NEG); Urine Glucose NEGATIVE (NEG); Urine Protein NEGATIVE (NEG); Urine pH 6.5 (5.0-7.0)
--- NOTE | 2018-08-04 12:42 | ECHO ---
HEIGHT: 5 ft 3 in WEIGHT: 182 lb 8 oz DATE OF STUDY: 08/04/[address]: Kali Jones MD 2-DIMENSIONAL: YES M.MODE: YES DOPPLER: YES COLOR FLOW: YES TDS: NO PORTABLE: NO DEFINITY: NO BUBBLE STUDY: NO DIAGNOSIS: TIA CARDIAC HISTORY: CATHERIZATION: NO SURGERY: NO PROSTHETIC VALVE: NO PACEMAKER: YES MEASUREMENTS (cm) DIASTOLIC (NORMALS) SYSTOLIC (NORMALS) IVSd 1.0 (0.6-1.2) LA Diam 3.5 (1.9-4.0) LVEF 66% LVIDd 4.3 (3.5-5.7) LVIDs 2.7 (2.0-3.5) %FS 36% LVPWd 1.1 (0.6-1.2) Ao Diam 2.9 (2.0-3.7) 2 DIMENSIONAL ASSESSMENT: RIGHT ATRIUM: NORMAL LEFT ATRIUM: NORMAL RIGHT VENTRICLE: NORMAL LEFT VENTRICLE: NORMAL TRICUSPID VALVE: NORMAL MITRAL VALVE: NORMAL PULMONIC VALVE: NORMAL AORTIC VALVE: NORMAL PERICARDIAL EFFUSION: NONE AORTIC ROOT: NORMAL LEFT VENTRICULAR WALL MOTION: DOPPLER/COLOR FLOW: MILD TRICUSPID REGURGITATION. COMMENTS: MILD TRICUSPID REGURGITATION. PACEMAKER IN RIGHT VENTRICLE APEX. NO CLOTS OR VEGETATION. NORMAL LEFT VENTRICULAR SIZE AND FUNCTION. TECHNOLOGIST: [place] VIRAMONTES
--- NOTE | 2018-08-04 19:25 | EKG ---
Test Date: 2018-08-04 Test Time: 08:37:55 Nurse Tech: HARMEET MEASUREMENT RESULTS: Intervals: Rate: 71 DE: 164 QRSD: 76 QT: 406 QTc: 441 [place]: P: 69 DE: 164 QRS: 28 T: 46 INTERPRETIVE STATEMENTS: Normal sinus rhythm ST abnormality, possible digitalis effect Abnormal ECG Compared to ECG 10/29/2017 07:36:20 ST (T wave) deviation now present Electronically Signed On 08-04-18 19:22:54 CDT by Jorge Cobb
[2018-08-04] MEDS: PROPRANOLOL HCL 40 MG TAB PO SCH (20:08)
[2018-08-04] MEDS: VENLAFAXINE HCL XR 75 MG CAP PO SCH (20:09)
[2018-08-04] MEDS ORDERED: VENLAFAXINE HCL 75 MG PO SCH (21:00)
--- NOTE | 2018-08-05 01:13 | CON ---
Reason For Consultation: Consultation called by Dr. Jones in the emergency room because of possib le transient ischemic attack. History Of Present Illness: Ms. Rodríguez is an 83-year-old patient with hypertension, dyslipidemia, and reported TIAs in the past, had an event this morning which she felt the TIA. She woke up, tried to get out of bed, and then felt "unusual and funny." She did not have face, arm, or leg focal weakness or numbness, but she just felt general not herself. She woke her son and asked him to bring her to the hospital. The episode lasted somewhere between 6 and 9 minutes and then she returned back to her self. At [facility], her head CT scan was unremarkable for any acute ischemic hemorrhagic c hange. She did have a finding of a chronic and enlarged sella turcica with 2 cm in diameter. This w as compared back to scan from 2016 and 2011 and appears to be unchanged. She does have a pacemaker a nd is unable to get the brain MRI. In the emergency room, her NIH stroke scale was 0. She was admitted for a stroke workup. Past Medical History: Hypertension, dyslipidemia, use of statins, hypothyroidism, transient ischemic attack, arrhythmia and now on cardiac pacemaker. Past Surgical History: Cholecystectomy and hysterectomy. Home Medications: Levothyroxine 25 mg daily, venlafaxine 75 mg twice daily, propranolol 40 mg daily, folic acid 1 mg daily, aspirin 81 mg daily. Allergies: AMLODIPINE, ANGIOTENSIN CONVERTING ENZYME INHIBITORS, AND CEPHALOSPORINS, ALONG WITH STAT INS, HMG-COA REDUCTASE. Family History: Not contributory. Social History: No alcohol, tobacco, or IV drug use. Review of Systems: Aside from mentioned above, she denies any recent fevers, chills, nausea, vomiting, arthritis, myalgi as, headaches, weight change, or rash. No psychiatric complaints. No gastrointestinal or genitourin bing issues. Physical Examination: Vital Signs: Blood pressure 152/69, pulse 72, respiratory rate 18, temperature 97.4, oxygen saturati on 98% on room air, weight 182 pounds, height 5 feet 3 inches, BMI 32.3. General: Ms. Rodríguez is resting in bed. She is in no acute distress. HEENT: She is normocephalic and atraumatic. Sclerae are anicteric. Oropharynx is pink and moist. Neck: Supple. Chest: Clear. Heart: Regular. Extremities: Show no clubbing, cyanosis, or edema. Neurologic: She is alert and oriented to person, place, and situation. She has no expressive or rec eptive aphasias. Cranial nerves 2 through 12 are intact by examination. Motor examination 5/5 proxi gricel and distally in upper and lower extremities. Sensory exam intact except for mild stocking-glov e loss to light touch temperature in the arms and legs. Reflexes depressed but symmetric in the uppe r and lower extremities. Coordination intact in the upper and lower extremities. Gait; good stance, stride, and a stroke scale of 0. Laboratory Studies: Complete blood count with differential is normal. Coagulation panel is normal. Chemistries are unremarkable except glucose slightly elevated at 114. Liver function studies are no rmal. C-reactive protein elevated at 11. Urinalysis shows a trace of esterase and is otherwise unre markable. Carotid artery ultrasound showed no evidence of hemodynamically significant stenosis and e chocardiogram showed ejection fraction 66% with no vegetation or clots in the right ventricle. Assessment: Ms. Rodríguez is an 83-year-old patient with a possible transient ischemic attack, although it is not quite clear if that is the case or there is a cardiovascular issue while she had her event. She has had a 2 cm sella turcica mass, stable for the last 6 years. That is unlikely to be a contr ibuting factor to the patient's symptoms. She was put on Plavix along with aspirin and folic acid. Plan: 1.Continue that regimen; aspirin, Plavix, and folic acid. 2.Continue with hypertensive management as indicated. 3.Continue with beta-mauri for heart rate control. 4.May try nonprescription fish oil to 4 g daily for cholesterol modification. It should be noted th at the patient is allergic to statins that is why she is not on statin at this point. 5.We will make sure that the blood work does include a lipid panel. CYDNEY/ELICEO Voice ID: [id number] Report ID: [id number]
[2018-08-05] MEDS: NA CHLORIDE 0.9% 1,000 ML IV SCH ×2 (02:00→05:48)
[2018-08-05 04:24] LABS: Absolute Lymphocytes (CBC) 1.6 K/uL (0.7-4.9); Absolute Monocytes 0.7 K/uL (0.1-1.3); Absolute Neutrophil 3.9 K/uL (1.8-8.0); Basophils % 0.7 % (0-1.3); Eosinophils % 5.4 % (0-4.4); Hematocrit 37.4 % (36.0-45.0); Lymphocytes % 23.9 % (15.3-44.8); MCH 32.3 pg (27.0-35.0); MCV 95.3 fL (80-100); MPV 8.6 fL (7.6-11.3); Monocytes % 10.8 % (3.3-12.3); RBC Red Blood Cell Count 3.92 M/uL (3.86-4.86)
[2018-08-05 04:46] LABS: Potassium 4.3 mmol/L (3.5-5.1)
--- NOTE | 2018-08-05 04:53 | HP ---
Date of Admission: 08/04/2018 History Of Present Illness: Ms. Rodríguez has had a TIA before, comes in with left-sided facial numbness , left arm and left leg tingling lasting for a few minutes. Reports to emergency room. She denies a ny complaints at this point. There is no chest pain, nausea, vomiting, diarrhea, coughing, sputum, h emoptysis, hematemesis, or melena. Past Medical History: She has had history of high blood pressure, hypothyroidism, depression, has a pituitary mass which was followed by a doctor in [place], dyslipidemia, TIA in the past. Surgical History: Pacemaker placement, hysterectomy, and rectocele. Social History: Nonsmoker. Medications: There are some medications she is on; Abilify 5 mg once a day, cabergoline 0.5 mg p.o. daily, Plavix 75 mg once a day, but she quit taking it as she did not realize she has to continue. W e had given a Plavix last visit in the hospital for TIA, folic acid 1 mg once a day, thyroid 88 mcg o nce a day, venlafaxine 150 mg p.o. twice a day, and Inderal 40 mg p.o. b.i.d. Physical Examination: Vital Signs: Ms. Mariama Mares blood pressure is 164/73, pulse is 60, respirations 16, temperature 98.4, O2 saturation 92% on room air. HEENT: No JVD, no carotid bruit. Chest: Clear. Heart: Regular. Abdomen: No guarding, no rebound, no rigidity, or no tenderness. Neurological: There are no focal deficits. Power 5/5 bilaterally. Sensation is normal. Reflexes a re normal. Lab Data: On admission, a cardiac enzymes x2 are negative. Her CBC; hemoglobin 13, hematocrit 40, w cheryl count 7.5, and platelets of 258,000. PT, INR, and PTT are normal. BUN 17, creatinine 1.20, sod ium 139, and glucose 114. C-reactive protein is 11. UA is negative. CT scan of brain is negative e xcept for the 2-cm mass. 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 H er chest x-ray is negative. Carotid ultrasound, mild plaquing, no significant disease. Echocardiogr am, negative. Assessment And Plan: 1.TIA, resume Plavix 75 mg once a day. The patient's family is aware, I have told the son to watch her medications from now onwards. She with her aging process and maybe some early memory loss forgot that she is supposed to take Plavix every day. I do not see any other changes in her medications at this point. She will be seeing Dr. Crowder, but she also sees a neurologist in [place] for followu p pituitary adenoma, which is about the same size as before. 2.Anxiety and depression, unchanged from before. 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 The patient is clinically stable, otherwise, most likel y will be able to go home tomorrow. GINA/ELICEO Voice ID: [id number]
[2018-08-05] MEDS ORDERED: LEVOTHYROXINE SOD 0.075 MG TAB PO SCH (06:00)
[2018-08-05] MEDS ORDERED: FOLIC ACID 1 MG TABLET PO SCH (09:00)
[2018-08-05] MEDS ORDERED: ASPIRIN EC 81 MG TAB PO SCH ×2 (09:00)
[2018-08-05] MEDS ORDERED: CLOPIDOGREL 75 MG TABLET PO SCH (09:00)
[2018-08-05] MEDS: PROPRANOLOL HCL 40 MG TAB PO SCH (10:02)
[2018-08-05] MEDS: VENLAFAXINE HCL XR 75 MG CAP PO SCH (10:03)
[2018-08-05 10:04] VITALS: O2SAT 97
[2018-08-05] MEDS ORDERED: AMLODIPINE 5 MG TAB PO ONE (11:54)
[2018-08-05 12:05] VITALS: BP 193/78
[2018-08-05 14:00] VITALS: TEMP 97.4
--- NOTE | 2018-08-05 15:37 | EKG ---
Test Date: 2018-08-05 Test Time: 07:46:37 Bagger Meat: HARMEET MEASUREMENT RESULTS: Intervals: Rate: 65 IN: 182 QRSD: 76 QT: 428 QTc: 445 [place]: P: 74 IN: 182 QRS: 52 T: 65 INTERPRETIVE STATEMENTS: Normal sinus rhythm Normal ECG Compared to ECG 08/04/2018 08:37:55 ST (T wave) deviation no longer present Electronically Signed On 08-05-18 15:34:52 CDT by Jorge Cobb
== END 2018-08-05 13:52 | disposition home or self-care (01) ==
LOC: ER 08:32 → ERHOLD 09:49 → 4TH 10:41
PROVIDERS: ADMIT Internal Medicine; ATTEND Internal Medicine
DX: G45.9 Transient cerebral ischemic attack, unspecified (principal); E78.5 Hyperlipidemia, unspecified; E03.9 Hypothyroidism, unspecified; F32.9 Major depressive disorder, single episode, unspecified; F41.8 Other specified anxiety disorders; D35.2 Benign neoplasm of pituitary gland; Z95.0 Presence of cardiac pacemaker; Z86.73 Personal history of transient ischemic attack (TIA), and cerebral infarction without residual deficits
CPT/HCPCS: 36415; 70450; 70496; 71045; 80048 ×2; 80061; 80076; 81003; 82550; 82553; 82962; 83735; 83880; 84484 ×3; 85025 ×2; 85610; 85652; 85730; 86140; 87086; 87088; 93005 ×2; 93306; 93880; 96365; 96366; 96375; 99285; G0378 ×2; J7030 ×4; Q9967

== ENCOUNTER 2019-08-23 18:43 | Emergency (ER) | payer OTHER ==
[2019-08-23 19:50] LABS: Absolute Lymphocytes (CBC) 1.7 K/uL (0.7-4.9); Basophils % 0.6 % (0-1.3); Hematocrit 36.7 % (36.0-45.0); Lymphocytes % 23.2 % (15.3-44.8); MPV 8.6 fL (7.6-11.3); RBC Red Blood Cell Count 3.93 M/uL (3.86-4.86)
[2019-08-23 19:55] LABS: Protime INR 0.99
[2019-08-23 20:07] LABS: ALT/SGPT 34 U/L (12-78); AST/SGOT 21 U/L (15-37); Albumin 3.5 g/dL (3.4-5.0); Alkaline Phosphatase 85 U/L (45-117); BUN Blood Urea Nitrogen 20 mg/dL (7-18); Bicarbonate 29 mmol/L (21-32); Bilirubin Direct < 0.1 mg/dL (0-0.2); Bilirubin Total 0.2 mg/dL (0.2-1.0); Glucose Level 99 mg/dL (74-106); Potassium 4.3 mmol/L (3.5-5.1); Sodium Level 142 mmol/L (136-145)
[2019-08-23 20:36] LABS: Barbiturates NEGATIVE (NEGATIVE); Benzodiazepines NEGATIVE (NEGATIVE); Cocaine NEGATIVE (NEGATIVE); METHAMPHETAM NEGATIVE (NEGATIVE); Methadone NEGATIVE (NEGATIVE); Opiates NEGATIVE (NEGATIVE); Phencyclidine NEGATIVE (NEGATIVE); THC Cannibis NEGATIVE (NEGATIVE)
[2019-08-23 20:43] LABS: Urine Blood NEGATIVE (NEG); Urine Glucose NEGATIVE (NEG); Urine Protein NEGATIVE (NEG)
--- NOTE | 2019-08-24 00:46 | EDPHYS ---
Physician Documentation [facility] Name: Mariaam Rodríguez Age: 84 yrs Sex: Female : 1935 Arrival Date: 08/23/2019 Time: 18:44 Bed 14 Private MD: ED Physician Freedom Tyler HPI: 08/23 19:45 This 84 yrs old Female presents to ER via Ambulatory with complaints of cp Medical Complaint. 19:45 The patient presents to the emergency department with depression, over unknown cp circumstances. 19:45 Onset: The symptoms/episode began/occurred gradually. Past psychiatric history: Prior cp diagnosis: depression, Psychiatric medications include: Effexor. Associated signs and symptoms: Pertinent negatives: abdominal pain, chest pain, delusions, fever, hallucinations, headache, homicidal ideation, paranoia, substance abuse, suicide ideation. Historical: - Allergies: 19:00 amlodipine; aj1 19:00 angiotensin converting enzyme inhibitors; aj1 19:00 angiotensin II inhibitors; aj1 19:00 CEPHALOSPORINS; aj1 19:00 Otnoksn-Qfs-Ddd Reductase Inhibitors; aj1 - Home Meds: 19:00 levothyroxine 75 mcg tab 1 tab once daily [Active]; venlafaxine 150 mg oral cp24 twice aj1 [Active]; memantine 5 mg oral tab 1 tabs 2 times per day [Active]; propranolol 40 mg Oral tab 1 tab 2 times per day [Active]; amlodipine 5 mg tab 1 tab once daily [Active]; Plavix 75 mg Oral tab 1 tab once daily [Active]; folic acid 1 mg Oral tab 1 tab once daily [Active]; folic acid 1 mg Oral tab 1 tab once daily [Active]; hydrochlorothiazide-triamterne as needed [Active]; clonidine HCl 0.1 mg Oral tab [Active]; - PMHx: 19:00 chronic constipation; Hyperlipidemia; Hypertension; Hypothyroidism; Pacemaker; TIA; aj1 19:01 nonfunctioning pituitary tumor; aj1 - Immunization history:: Flu vaccine is not up to date. - Social history:: Smoking status: Patient/guardian denies using tobacco. - Ebola Screening: : Patient denies travel to an Ebola-affected area in the 21 days before illness onset. ROS: 19:55 Constitutional: Negative for body aches, chills, fever, poor PO intake. cp 19:55 Eyes: Negative for injury, pain, redness, and discharge. cp 19:55 Cardiovascular: Negative for chest pain, palpitations. cp 19:55 Respiratory: Negative for cough, shortness of breath, wheezing. 19:55 Abdomen/GI: Negative for abdominal pain, nausea, vomiting, and diarrhea. 19:55 Neuro: Negative for altered mental status, headache, speech changes, weakness. 19:55 Psych: Positive for depression, Negative for auditory hallucinations, visual hallucinations, homicidal ideation, suicide gesture, suicidal ideation. 19:55 All other systems are negative. Exam: 20:00 Constitutional: The patient appears in no acute distress, alert, awake, cp non-diaphoretic, non-toxic, well developed, well nourished. 20:00 Head/Face: Normocephalic, atraumatic. cp 20:00 Eyes: Periorbital structures: appear normal, Pupils: equal, round, and reactive to light and accomodation, Extraocular movements: intact throughout, Conjunctiva: normal, no exudate, no injection, Sclera: no appreciated abnormality, Lids and lashes: appear normal, bilaterally. 20:00 ENT: External ear(s): are unremarkable, Nose: is normal, Mouth: Lips: moist, Oral mucosa: pink and intact, moist, Posterior pharynx: is normal, airway is patent, no erythema, no exudate. 20:00 Neck: ROM/movement: is normal, is supple, without pain, no range of motions limitations, no meningismus, negative Brudzinski's sign. 20:00 Chest/axilla: Inspection: normal, Palpation: is normal, no crepitus, no tenderness. 20:00 Cardiovascular: Rate: normal, Rhythm: regular, Edema: is not appreciated, JVD: is not appreciated. 20:00 Respiratory: the patient does not display signs of respiratory distress, Respirations: normal, no use of accessory muscles, no retractions, no splinting, no tachypnea, labored breathing, is not present, Breath sounds: are clear throughout, no decreased breath sounds, no stridor, no wheezing. 20:00 Abdomen/GI: Inspection: abdomen appears normal, Bowel sounds: active, all quadrants, Palpation: abdomen is soft and non-tender, in all quadrants. 20:00 Skin: no rash present. 20:00 Neuro: Orientation: to person, place \T\ time. Mentation: is normal, Cerebellar function: is grossly normal, Motor: moves all fours, strength is normal, Sensation: is normal. 20:05 ECG was reviewed by the Attending Physician. Vital Signs: 19:01 BP 170 / 75; Pulse 72; Resp 18; Temp 98.0; Pulse Ox 99% on R/A; Weight 83.01 kg (R); aj1 Height 5 ft. 3 in. (160.02 cm) (R); Pain 0/10; 19:17 BP 153 / 61; Pulse 74; Resp 18; Temp 98.9(O); Pulse Ox 100% on R/A; jb5 20:04 BP 155 / 65; Pulse 71; Resp 16; Temp 98.6(O); Pulse Ox 100% on R/A; jb5 20:38 BP 154 / 79; Pulse 81; Resp 22; Temp 98.9(O); Pulse Ox 98% on R/A; jb5 21:33 BP 161 / 78; Pulse 75; Resp 18; Temp 98.7(TE); Pulse Ox 100% on R/A; jb5 22:16 BP 155 / 65; Pulse 73; Resp 18; Temp 98.7(O); Pulse Ox 98% on R/A; jb5 23:01 BP 148 / 59; Pulse 75; Resp 18; Temp 98.6(TE); Pulse Ox 99% on R/A; jb5 23:34 BP 138 / 57; Pulse 73; Resp 22; Temp 98.9(TE); Pulse Ox 96% on R/A; jb5 08/24 00:17 BP 142 / 58; Pulse 71; Resp 18; Temp 98.9(TE); Pulse Ox 96% on R/A; jb5 00:56 BP 140 / 52; Pulse 74; Resp 18; Temp 98.7(TE); Pulse Ox 100% on R/A; jb5 08/23 19:01 Body Mass Index 32.42 (83.01 kg, 160.02 cm) aj MDM: 08/23 19:24 Patient medically screened. 08/24 00:44 Data reviewed: vital signs, nurses notes, lab test result(s), EKG. 00:44 Test interpretation: by ED physician or midlevel provider: ECG. 00:44 Counseling: I had a detailed discussion with the patient and/or guardian regarding: the cp historical points, exam findings, and any diagnostic results supporting the discharge/admit diagnosis, lab results, radiology results, the need for outpatient follow up, a psychiatrist, to return to the emergency department if symptoms worsen or persist or if there are any questions or concerns that arise at home. 00:44 ED course: VSS. Patient evaluated by [facility] and felt to be stable for discharge to home with outpatient f/u. 08/23 19:32 Order name: Acetaminophen; Complete Time: 20:45 cp 08/23 19:32 Order name: Basic Metabolic Panel; Complete Time: 20:45 cp 08/23 19:32 Order name: CBC with Diff; Complete Time: 20:45 cp 08/23 19:32 Order name: ETOH Level; Complete Time: 20:45 cp 08/23 19:32 Order name: Hepatic Function; Complete Time: 20:45 cp 08/23 19:32 Order name: PT-INR; Complete Time: 20:45 cp 08/23 19:32 Order name: Ptt, Activated; Complete Time: 20:45 cp 08/23 19:32 Order name: Salicylate; Complete Time: 20:45 cp 08/23 19:32 Order name: Urine Drug Screen; Complete Time: 20:45 cp 08/23 19:32 Order name: EKG; Complete Time: 19:34 cp 08/23 19:32 Order name: EKG - Nurse/Tech; Complete Time: 20:03 cp 08/23 19:32 Order name: IV Saline Lock; Complete Time: 19:54 cp 08/23 19:32 Order name: Labs collected and sent; Complete Time: 19:54 cp 08/23 20:23 Order name: Urine Dipstick--Ancillary (enter results); Complete Time: 20:45 em1 08/23 19:32 Order name: Urine Dipstick-Ancillary (obtain specimen); Complete Time: 20:22 cp EC/06 20:05 Rate is 71 beats/min. Rhythm is regular. DE interval is normal. QRS interval is normal. cp QT interval is normal. T waves are Flattened in leads aVL, V2. Interpreted by me. Reviewed by me. Administered Medications: No medications were administered Disposition: 08/24/19 00:45 Discharged to Home. Impression: Major depressive disorder, recurrent. - Condition is Stable. - Discharge Instructions: Major Depressive Disorder. - Medication Reconciliation Form, Thank You Letter, Antibiotic Education, Prescription Opioid Use form. - Follow up: Private Physician; When: 2 - 3 days; Reason: Recheck today's complaints. - Problem is an ongoing problem. - Symptoms have improved. Addendum: 08/27/2019 20:26 Co-signature as Attending Physician, Freedom Tyler MD. r n Signatures: Dispatcher [employer] EDMS Joy Cook RN RN aj1 Freedom Tyler MD MD rn Zenobia Thurman RN RN lp1 Kali Benavidez PA PA cp Corrections: (The following items were deleted from the chart) 08/24 01:32 00:45 08/24/2019 00:45 Discharged to Home. Impression: Major depressive disorder, lp1 recurrent. Condition is Stable. Forms are Medication Reconciliation Form, Thank You Letter, Antibiotic Education, Prescription Opioid Use. Follow up: Private Physician; When: 2 - 3 days; Reason: Recheck today's complaints. Problem is an ongoing problem. Symptoms have improved. cp 05:45 05:44 Constitutional: Negative for body aches, chills, fever, malaise, poor PO intake, cp cp 05:45 05:44 Eyes: Negative for injury, pain, redness, and discharge, cp cp
--- NOTE | 2019-08-24 00:46 | ER ---
Nurse's Notes [facility] Name: Mariama Rodríguez Age: 84 yrs Sex: Female : 1935 Arrival Date: 08/23/2019 Time: 18:44 Bed 14 Private MD: Diagnosis: Major depressive disorder, recurrent Presentation: 08/23 18:54 Presenting complaint: Patient states: "I'm totally depressed, I would be gone if I had aj1 a gun.". Transition of care: patient was not received from another setting of care. Onset of symptoms. 18:54 Method Of Arrival: Ambulatory [facility] 18:56 Onset of symptoms was August 23, 2019. Risk Assessment: Do you want to hurt yourself aj1 or someone else? Patient reports desire/thoughts of hurting themselves or someone else. Provider notified. Initial Sepsis Screen: Does the patient meet any 2 criteria? No. Patient's initial sepsis screen is negative. Does the patient have a suspected source of infection? No. Patient's initial sepsis screen is negative. Care prior to arrival: None. 18:56 Acuity: CED 2 aj1 Triage Assessment: 19:01 General: Appears uncomfortable, Behavior is cooperative, anxious. Pain: Denies pain. aj1 Neuro: Level of Consciousness is awake, alert, obeys commands. Cardiovascular: Patient's skin is warm and dry. Respiratory: Airway is patent Respiratory effort is even, unlabored, Respiratory pattern is regular, symmetrical. Historical: - Allergies: 19:00 amlodipine; aj1 19:00 angiotensin converting enzyme inhibitors; aj1 19:00 angiotensin II inhibitors; aj1 19:00 CEPHALOSPORINS; aj1 19:00 Ewxgfrq-Nyt-Aij Reductase Inhibitors; aj - Home Meds: 19:00 levothyroxine 75 mcg tab 1 tab once daily [Active]; venlafaxine 150 mg oral cp24 twice aj1 [Active]; memantine 5 mg oral tab 1 tabs 2 times per day [Active]; propranolol 40 mg Oral tab 1 tab 2 times per day [Active]; amlodipine 5 mg tab 1 tab once daily [Active]; Plavix 75 mg Oral tab 1 tab once daily [Active]; folic acid 1 mg Oral tab 1 tab once daily [Active]; folic acid 1 mg Oral tab 1 tab once daily [Active]; hydrochlorothiazide-triamterne as needed [Active]; clonidine HCl 0.1 mg Oral tab [Active]; - PMHx: 19:00 chronic constipation; Hyperlipidemia; Hypertension; Hypothyroidism; Pacemaker; TIA; aj1 19:01 nonfunctioning pituitary tumor; aj1 - Immunization history:: Flu vaccine is not up to date. - Social history:: Smoking status: Patient/guardian denies using tobacco. - Ebola Screening: : Patient denies travel to an Ebola-affected area in the 21 days before illness onset. Screenin:30 Abuse screen: Denies threats or abuse. Nutritional screening: No deficits noted. jb4 Tuberculosis screening: No symptoms or risk factors identified. Fall Risk None identified. Assessment: 19:30 General: Appears in no apparent distress. uncomfortable, Behavior is cooperative, jb4 crying. Pain: Denies pain. Neuro: Level of Consciousness is awake, alert, obeys commands, Oriented to person, place, time, situation. Cardiovascular: Patient's skin is warm and dry. Respiratory: Airway is patent Respiratory effort is even, unlabored, Respiratory pattern is regular, symmetrical. GI: No deficits noted. No signs and/or symptoms were reported involving the gastrointestinal system. : No deficits noted. No signs and/or symptoms were reported regarding the genitourinary system. EENT: No deficits noted. No signs and/or symptoms were reported regarding the EENT system. Derm: Skin is intact, Skin is pink, warm \\T\\ dry. Musculoskeletal: Circulation, motion, and sensation intact. Range of motion: intact in all extremities. 20:30 Reassessment: Patient appears in no apparent distress at this time. Patient and/or jb4 family updated on plan of care and expected duration. Pain level reassessed. Patient is alert, oriented x 3, equal unlabored respirations, skin warm/dry/pink. 21:30 Reassessment: Patient appears in no apparent distress at this time. Patient and/or jb4 family updated on plan of care and expected duration. Pain level reassessed. Patient is alert, oriented x 3, equal unlabored respirations, skin warm/dry/pink. Discussed plan of care with patient. Pt verbalized understanding of plan of care and seems to be more cheerful than upon arrival, is no longer crying. Denies suicidal and homicidal ideations. 22:30 Reassessment: Patient appears in no apparent distress at this time. Patient and/or jb4 family updated on plan of care and expected duration. Pain level reassessed. Patient is alert, oriented x 3, equal unlabored respirations, skin warm/dry/pink. 23:00 Reassessment: Patient appears in no apparent distress at this time. Patient and/or jb4 family updated on plan of care and expected duration. Pain level reassessed. Patient is alert, oriented x 3, equal unlabored respirations, skin warm/dry/pink. 08/24 00:03 Reassessment: Patient appears in no apparent distress at this time. Patient and/or jb4 family updated on plan of care and expected duration. Pain level reassessed. PT is resting in bed with eyes closed, respirations even and unlabored no s/s of distress noted. Son is at the bedside. Vital Signs: 08/23 19:01 BP 170 / 75; Pulse 72; Resp 18; Temp 98.0; Pulse Ox 99% on R/A; Weight 83.01 kg (R); aj1 Height 5 ft. 3 in. (160.02 cm) (R); Pain 0/10; 19:17 BP 153 / 61; Pulse 74; Resp 18; Temp 98.9(O); Pulse Ox 100% on R/A; jb5 20:04 BP 155 / 65; Pulse 71; Resp 16; Temp 98.6(O); Pulse Ox 100% on R/A; jb5 20:38 BP 154 / 79; Pulse 81; Resp 22; Temp 98.9(O); Pulse Ox 98% on R/A; jb5 21:33 BP 161 / 78; Pulse 75; Resp 18; Temp 98.7(TE); Pulse Ox 100% on R/A; jb5 22:16 BP 155 / 65; Pulse 73; Resp 18; Temp 98.7(O); Pulse Ox 98% on R/A; jb5 23:01 BP 148 / 59; Pulse 75; Resp 18; Temp 98.6(TE); Pulse Ox 99% on R/A; jb5 23:34 BP 138 / 57; Pulse 73; Resp 22; Temp 98.9(TE); Pulse Ox 96% on R/A; jb5 08/24 00:17 BP 142 / 58; Pulse 71; Resp 18; Temp 98.9(TE); Pulse Ox 96% on R/A; jb5 00:56 BP 140 / 52; Pulse 74; Resp 18; Temp 98.7(TE); Pulse Ox 100% on R/A; jb5 08/23 19:01 Body Mass Index 32.42 (83.01 kg, 160.02 cm) aj1 ED Course: 08/23 18:44 Patient arrived in ED. as 18:56 Triage completed. aj1 19:01 Arm band placed on Patient placed in an exam room. aj1 19:03 Kali Benavidez PA is PHCP. cp 19:03 Freedom Tyler MD is Attending Physician. cp 19:16 Safety checks: Items removed: yes. Door open/sign placed on door: yes. Family/friend jb5 present: yes. Sitter present: Yes. 19:25 Safety checks: Items removed: yes. Door open/sign placed on door: yes. Family/friend jb5 present: no. Sitter present: Yes. 19:30 Patient has correct armband on for positive identification. Bed in low position. Call jb4 light in reach. Side rails up X 1. Pulse ox on. NIBP on. 19:40 Inserted saline lock: 22 gauge in left antecubital area, using aseptic technique. Blood jb5 collected. 19:45 Safety checks: Items removed: yes. Door open/sign placed on door: yes. Family/friend jb5 present: yes. Sitter present: Yes. 19:54 Acetaminophen Sent. jb5 19:54 Basic Metabolic Panel Sent. jb5 19:54 ETOH Level Sent. jb5 19:54 Hepatic Function Sent. jb5 19:54 PT-INR Sent. jb5 19:54 Ptt, Activated Sent. jb5 19:54 Salicylate Sent. jb5 20:03 Safety checks: Items removed: yes. Door open/sign placed on door: yes. Family/friend jb5 present: yes. Sitter present: Yes. 20:21 Safety checks: Items removed: yes. Door open/sign placed on door: yes. Family/friend jb5 present: yes. Sitter present: Yes. 20:34 Safety checks: Items removed: yes. Door open/sign placed on door: yes. Family/friend jb5 present: yes. Sitter present: Yes. 20:38 Patient started to cry and kleenex was offered to her. jb5 21:04 Safety checks: Items removed: yes. Door open/sign placed on door: yes. Family/friend jb5 present: no. Sitter present: Yes. 21:31 Safety checks: Items removed: yes. Door open/sign placed on door: yes. Family/friend jb5 present: no. Sitter present: Yes. 21:43 Don Clement RN is Primary Nurse. jb4 21:49 Safety checks: Items removed: yes. Door open/sign placed on door: yes. Family/friend jb5 present: no. Sitter present: Yes. 22:04 Safety checks: Items removed: yes. Door open/sign placed on door: yes. Family/friend jb5 present: no. Sitter present: Yes. 22:18 Safety checks: Items removed: yes. Door open/sign placed on door: yes. Family/friend jb5 present: yes. Sitter present: Yes. 22:41 Safety checks: Items removed: yes. Door open/sign placed on door: yes. Family/friend jb5 present: yes. Sitter present: Yes. 22:50 Safety checks: Items removed: yes. Door open/sign placed on door: yes. Family/friend jb5 present: yes. Sitter present: Yes. 23:01 Safety checks: Items removed: yes. Door open/sign placed on door: yes. Family/friend jb5 present: yes. Sitter present: Yes. 23:13 Safety checks: Items removed: yes. Door open/sign placed on door: yes. Family/friend jb5 present: yes. Sitter present: Yes. 23:34 Safety checks: Items removed: yes. Door open/sign placed on door: yes. Family/friend jb5 present: yes. Sitter present: Yes. 08/24 00:01 Safety checks: Items removed: yes. Door open/sign placed on door: no. Family/friend jb5 present: yes. Sitter present: Yes. 00:16 Safety checks: Items removed: yes. Door open/sign placed on door: no. Family/friend jb5 present: yes. Sitter present: Yes. 00:33 Safety checks: Items removed: yes. Door open/sign placed on door: no. Family/friend jb5 present: yes. Sitter present: Yes. 00:52 Safety checks: Items removed: yes. Door open/sign placed on door: yes. Family/friend jb5 present: yes. Sitter present: Yes. 01:28 No provider procedures requiring assistance completed. IV discontinued, No lp1 redness/swelling at site. Pressure dressing applied. Administered Medications: No medications were administered Outcome: 00:45 Discharge ordered by MD. cp 01:28 Discharged to home ambulatory, with family. lp1 01:28 Condition: good 01:28 Discharge instructions given to patient, family, Instructed on discharge instructions, follow up and referral plans. Demonstrated understanding of instructions, follow-up care. 01:32 Patient left the ED. lp1 Signatures: Joy Cook RN RN aj1 Sharron Cummins Laura RN RN lp1 Kali Benavidez PA PA cp Bryson, James RN RN jb4 Patricia Huff jb5 Corrections: (The following items were deleted from the chart) 08/23 23:07 23:06 Abuse screen: Denies threats or abuse. 4 [facility] 23: 23:06 Tuberculosis screening: No symptoms or risk factors identified. jb4 4 23: 23:06 Nutritional screening: No deficits noted. jb4 4 23: 23:06 Fall Risk None identified. jb4 jb4
[2019-08-24 02:35] VITALS: BP 140/52; TEMP 98.7; O2SAT 100
--- NOTE | 2019-08-24 09:44 | EKG ---
Test Date: 2019-08-23 Test Time: 19:59:30 Psychologist Experimental: JACQUELYN MEASUREMENT RESULTS: Intervals: Rate: 71 UT: 180 QRSD: 76 QT: 402 QTc: 436 [place]: P: 58 UT: 180 QRS: 24 T: 50 INTERPRETIVE STATEMENTS: Normal sinus rhythm normal ECG Compared to ECG 08/05/2018 07:46:37 no significant change from previous ECG Electronically Signed On 08-24-19 09:43:45 CDT by Xander Geller
== END 2019-08-24 01:32 | disposition home or self-care (01) ==
LOC: ER 18:43
DX: F33.9 Major depressive disorder, recurrent, unspecified (principal); I10 Essential (primary) hypertension; E78.5 Hyperlipidemia, unspecified; E03.9 Hypothyroidism, unspecified; Z79.01 Long term (current) use of anticoagulants; Z88.3 Allergy status to other anti-infective agents; Z88.8 Allergy status to other drugs, medicaments and biological substances; Z95.0 Presence of cardiac pacemaker
CPT/HCPCS: 36415; 80048; 80076; 80307; 80320; 80329; 81003; 85025; 85610; 85730; 93005; 99284